=== PATIENT | male | born 2000 | race Two or more races ===

== ENCOUNTER 2024-12-25 22:28 | Emergency (ER) | payer OTHER ==
[2024-12-25 22:49] VITALS: RESP 18; BMI 29.2
[2024-12-25] MEDS ORDERED: DEXAMETHASONE SOD PHOSPHATE 4 MG/1 ML VIAL ONE (23:12)
[2024-12-25] MEDS ORDERED: diphenhydrAMINE HCL 25 MG CAPSULE (FP) PO ONE ×2 (23:12→23:54)
[2024-12-25] MEDS ORDERED: FAMOTIDINE 20 MG TABLET ONE (23:13)
[2024-12-25] MEDS: diphenhydrAMINE HCL 25 MG CAPSULE (FP) PO ONE ×3 (23:17→23:58)
[2024-12-25] MEDS: DEXAMETHASONE SOD PHOSPHATE 4 MG/1 ML VIAL IM ONE ×3 (23:17→23:58)
[2024-12-25] MEDS: FAMOTIDINE 20 MG TABLET PO ONE ×2 (23:18→23:27)
[2024-12-25 23:50] VITALS: BP 129/76; PULSE 88; TEMP 98.4
[2024-12-25] MEDS ORDERED: DEXAMETHASONE SOD PHOSPHATE 10 MG/1 ML VIAL ONE (23:54)
[2024-12-25] MEDS: CLOTRIMAZOLE 1% CREAM TP SCH (23:58)
[2024-12-26 02:01] LABS: HIV INTERPRETATION NEGATIVE (NEGATIVE)
[2024-12-26 02:02] LABS: HCV DIAGNOSTIC IN-HOUSE W/RFLX NON-REACTIVE (NONREACTIVE)
[2024-12-26] MEDS ORDERED: CLOTRIMAZOLE 1% VAGINAL CREAM WITH APPLICATOR 45 GM TUBE VG SCH (22:00)
== END 2024-12-26 00:37 | disposition home or self-care (01) ==
LOC: JER 22:28
PROC: 3E023GC Introduction of Other Therapeutic Substance into Muscle, Percutaneous Approach (ICD-10-PCS; principal; 2024-12-25)
PROC: 3E023GC Introduction of Other Therapeutic Substance into Muscle, Percutaneous Approach (ICD-10-PCS; 2024-12-25)
DX: R21 Rash and other nonspecific skin eruption (principal); L50.0 Allergic urticaria; B35.6 Tinea cruris; L53.9 Erythematous condition, unspecified
CPT/HCPCS: 36415; 86803; 87389; 99284-25